=== PATIENT | female | born 1950 ===

== ENCOUNTER 2019-11-18 22:28 | Inpatient (IN) | payer MEDICARE, OTHER ==
[2019-11-18] MEDS ORDERED: PAXIL20 MG PO (23:17)
[2019-11-18] MEDS ORDERED: NORVASC5 MG PO (23:17)
[2019-11-18] MEDS ORDERED: MUPIROCIN22 GM TOPICAL (23:21)
[2019-11-18] MEDS ORDERED: CALCIUM 500 +1 EAC3 PO (23:25)
[2019-11-18] MEDS ORDERED: VITAMIN D400 UNI1 PO (23:27)
[2019-11-18] MEDS ORDERED: VITAMIN D50000 UNI2 PO (23:31)
[2019-11-19 05:22] VITALS: BP 134/79; BMI 24.0
--- NOTE | 2019-11-19 06:23 | NUR ---
NEW ADMIT TO DR CHIRINOS FROM [facility] ED RELATED TO SUCIDAL IDEATIONS. RECEIVED VIA EMS. CALM AND COOPERATIVE UPON ARRIVAL. DENIES THOUGHTS OF SELF HARM. CONTRACTS FOR SAFETY. STATES SHE IS A FULL CODE. SIGNED ADMIT CONSENTS.
[2019-11-19 07:49] LABS: BASOPHILS 0.5 % (0-2); EOSINOPHILS 2.6 % (0-7); HEMATOCRIT 44.6 % (36.0-48.0); IMMATURE GRANULOCYTES 0.4 % (0-5); LYMPHOCYTES 29.1 % (15-50); MCH 31.8 pg (26.0-34.0); MCHC 33.6 g/dL (31.0-37.0); MCV 94.7 fL (80.0-100.0); MEAN PLATELET VOLUME 9.9 fL (7.4-10.4); MONOCYTES 8.4 % (2-11); PLATELET COUNT 255 10x3/uL (130-400); RBC 4.71 10x6/uL (4.00-5.40); RDW 12.2 % (11.5-14.5); WBC 5.5 10x3/uL (4.8-10.8)
[2019-11-19 08:13] LABS: ALBUMIN 4.2 g/dL (3.4-5.0); ALKALINE PHOSPHATASE 60 U/L (30-120); ALT (SGPT) 28 U/L (10-68); BILIRUBIN - TOTAL 0.32 mg/dL (0.2-1.3); CALC OSMOLALITY 281 mosm/kg (275-300); CALCIUM 9.8 mg/dL (8.5-10.1); CARBON DIOXIDE 28.6 mmol/L (21.0-32.0); CHLORIDE - SERUM 104 mmol/L (98-107); CHOL - HDL RATIO 3.3 ratio (2.3-4.1); CHOLESTEROL, TOTAL 255 mg/dL (0-200); CREATININE - SERUM 0.9 mg/dL (0.6-1.3); GLUCOSE 96 mg/dL (74-106); HDL CHOLESTEROL 78 mg/dL (32-96); LDL CHOLESTEROL 160 mg/dL (0-100); LDL-HDL RATIO 2.1 ratio (1.5-3.5); POTASSIUM - SERUM 4.1 mmol/L (3.5-5.1); PROTEIN - SERUM 8.4 g/dL (6.4-8.2); SODIUM 141 mmol/L (136-145); THYROID STIMULATING HORMONE 2.68 uIU/mL (0.36-3.74); TRIGLYCERIDE 86 mg/dL (30-200); UREA NITROGEN 16 mg/dL (7-18); eGFR NON AFRICAN AMERICAN 66 mL/min (90-120)
[2019-11-19 08:30] VITALS: BP 135/92
[2019-11-19 11:17] VITALS: Wt 60.5 kg
--- NOTE | 2019-11-19 11:31 | NUR ---
PT IS VERY AGITATED, TEARFUL, AND ANXIOUS AT THIS TIME. ASSESSMENT COMPLETED. PT IS ALERT X 4. PT DENIES SELF HARM, BUT STATES " I AM A NERVOUS WRECK, I NEED HELP." PRN ATIVAN 0.5MG PO AND HALDOL 2MG PO GIVEN PER PRN ORDERS. WILL CPOC
[2019-11-19 20:00] VITALS: BP 158/65
--- NOTE | 2019-11-19 22:12 | NUR ---
B.) PT IS ALERT AND ORIENTED X4. SHE IS CALM AND COOPERATIVE WITH STAFF. SHE DENIES ANY SI THIS SHIFT. SHE IS RECEIVED IN THE DAYROOM SOCIALIZING WITH PEERS. I.) PROVIDED PM MEDICATIONS PRESCRIBED. REDIRECT NEEDED. R.) COMPLIANT WITH ALL MEDICATIONS. EASY TO REDIRECT. P.) WILL CONTINUE TO MONITOR.
[2019-11-20 07:15] LABS: RAPID PLASMA REAGIN Non Reactive (Non Reactive)
--- NOTE | 2019-11-20 07:50 | NUR ---
The patient is awake and she is alert, she is socializing, she denies SI or HI this am, she is socializing and interacting with her peers. She is pleasant and cooperative. Affect is reactive. She ambulates, toilets, and feeds herself. Provide prescribed meds. The patient is compliant with meds. Continue POC.
[2019-11-20 08:07] VITALS: BP 143/82
--- NOTE | 2019-11-20 15:38 | PSY ---
PATIENT NAME:SARANYA MAN MEDICAL RECORD: [id number] : 54 LOCATION:[facility] ADMISSION DATE: 11/18/19 ACCOUNT: [id number] PSYCHIATRIC EVALUATION DATE OF EVALUATION: 11/19/19 IDENTIFYING DATA: The patient is 69 years old and she is admitted to the hospital on a voluntary basis. CHIEF COMPLAINT: Depression. HISTORY OF PRESENT ILLNESS: The patient initially presented to the [facility] emergency room reporting suicidal ideations and depression. She says she has been very anxious, feeling that she is about to come out of her skin and lose control. She states that she is depressed over her son and problems with her relationship with that son and a related granddaughter that she is not allowed to see. PAST MEDICAL HISTORY: Significant for hypertension. 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 PAST PSYCHIATRIC HISTORY: Significant for depression. The patient had serious problems with mood and behavior as well as hospitalizations for this in the past. FAMILY HISTORY: Unknown. ALLERGIES: CODEINE, IBUPROFEN, AND BENADRYL. CURRENT MEDICATIONS: Include Paxil, Norvasc, and multiple vitamins. SOCIAL HISTORY: The patient does not smoke; she does not drink, although she did in her youth; and she does not use recreational drugs, although again she did in the past. 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 MENTAL STATUS EXAMINATION: The patient is awake, alert, and oriented to person and place as well as time and situation. Her mood is depressed. Her affect is constricted. Thought processes are circumstantial. Memory, concentration, and abstraction abilities are moderately impaired and she denies that she would seek to harm herself or others as well as any overt psychotic symptoms. ASSETS: Supportive family members. LIABILITIES: Limited insight. DIAGNOSTIC IMPRESSION: AXIS I: Major depression, severe, recurrent without psychotic features. AXIS II: Cluster B personality traits. AXIS III: Hypertension, neuropathy, osteoarthritis. AXIS IV: Moderate stressors. AXIS V: Global assessment of functioning is 35. PLAN: At this time, the patient is admitted to the hospital secondary to suicidal thoughts associated with a depressive illness. She will be treated with antidepressant medications. Her long-term prognosis is guarded. NTS:[id number] Voice Confirmation ID: [id number] DOCUMENT ID: [id number] ROGELIO CHIRINOS MD at 1538 CC: [id number] DICTATION DATE: 11/19/19 1609 SCREW MACHINE TOOL SETTER: 11/19/19 1938 ADM IN [place] [id number] [place] [id number]
[2019-11-20 20:29] VITALS: BP 143/74
--- NOTE | 2019-11-20 20:46 | NUR ---
B.) PT IS ALERT AND ORIENTED X4. SHE IS CALM AND COOPERATVIE WITH STAFF. SHE IS ABLE TO VOICE NEEDS AND WANTS. SHE DENIES ANY SI AT THIS TIME. SHE IS OBSERVED SOCIALIZING. I.) PROVIDED PM MEDICATIONS PRESCRIBED. REDIRECT NEEDED. R.) COMPLIANT WITH ALL MEDICATIONS. EASY TO REDIRECT. P.) WILL CONTINUE TO MONITOR.
[2019-11-21 09:50] VITALS: BP 110/79
--- NOTE | 2019-11-21 11:16 | NUR ---
Nutrition Follow-up: Diet: Regular PO intake: 70-100% x all meals Last BM: none since admit. Wt: 144# (11/19/19) Meds and labs reviewed Recommend continue current diet. RD following.
[2019-11-21 20:27] VITALS: BP 113/69
--- NOTE | 2019-11-21 21:30 | NUR ---
B) RECEIVED IN CHAIR WATCHING TV AND SOCIALIZING WITH PEERS. SHE IS ALERT AND ORIENTED X 4, CALM AND COOPERATIVE WITH ASSESSMENT, AND DENIES SI TONIGHT. I) ADMINISTERED SCHEDULED MEDICATIONS ORDERED. REDIRECT NEEDED. R) COMPLIANT WITH MEDICATIONS. REDIRECTS EASILY. P) CONTINUE PLAN OF CARE.
[2019-11-22 08:01] VITALS: BP 119/81
--- NOTE | 2019-11-22 11:37 | NUR ---
PT IS AWAKE AND ALERT. CALM AND COOPERATIVE WITH ASSESSMENT. PRESCRIBED MEDS PROVIDED ORDERED. MED COMPLIANT. DENIES SI OR HI THIS AM. SHE IS PLEASANT AND COOPERATIVE. HER AFFECT IS REACTIVE. WILL CPOC.
[2019-11-22 20:41] VITALS: BP 123/82
--- NOTE | 2019-11-23 03:16 | NUR ---
RECEIVED PATIENT IN DAYROOM, SHE IS CALM, PLEASANT, SOCIALIZING WITH OTHER PATIENTS VERY WELL, SHE ACTUALLY TRIES TO HELP WITH OTHER PATIENTS, SHE IS DENYING SUICIDIAL IDEATIONS, SHE IS COMPLIANT WITH HER MEDS, NO ADVERSE REACTION NOTED, SHE CAN MAKE ALL OF HER NEEDS KNOWN. SHE IS INDEPENDENT WITH ADL'S. WILL FOLLOW POC
[2019-11-23 08:30] VITALS: BP 107/74
--- NOTE | 2019-11-23 12:00 | NUR ---
RECEIVED IN HALLWAY OUTSIDE OF NURSES STATION. CALM AND COOPERATIVE WITH CARE AND ASSESSMENT. DENIES SUICIDAL IDEATION. REDIRECT AND REORIENT NEEDED. EATING AT THIS TIME. CONTINUE PLAN OF CARE.
[2019-11-23 21:50] VITALS: BP 130/80
--- NOTE | 2019-11-23 23:25 | NUR ---
RECEIVED IN DAYROOM. SITTING IN A CHAIR WITH PEERS AT HER SIDE. CALM AND COOPERATIVE WITH CARE ANS ASSESSMENT. NO STATEMENTS OF SELF HARM VOICED THIS EVENING. ENCOURAGE TO EXPRESS NEEDS. RESTING IN BED WITH EYES CLOSED. CONTINUE PLAN OF CARE.
--- NOTE | 2019-11-24 07:45 | NUR ---
REC'D PT BY NURSES STATION SOCAILIZING WITH PEERS. AWAKE AND ALERT X 4. DENIES SI AND HI. CALM AND COOPERATIVE WITH ASSESSMENT. PRESCRIBED MEDS PROVIDED ORDERED. MED COMPLIANT. WILL CPOC.
[2019-11-24 10:40] VITALS: BP 117/77
--- NOTE | 2019-11-24 12:30 | PN ---
PATIENT:SARANYA MAN MEDICAL RECORD: [id number] LOCATION:[facility] ADMISSION DATE: 11/18/19 PROGRESS NOTE DATE OF SERVICE: 11/20/2019 SUBJECTIVE: The patient's case was discussed with staff. She has no new complaint. OBJECTIVE: The patient is much improved. Her mood is near euthymic. ASSESSMENT: Major depression. PLAN: I am going to continue the patient on gabapentin for the neuropathy that she is experiencing. She tells me today that gabapentin has helped her in the past with mood stability. In addition to that, I am going to discontinue her Paxil and we will start her on a low dose of Effexor that may be increased over the next few days. TRANSINT:[id number] Voice Confirmation ID: [id number] DOCUMENT ID: [id number] ROGELIO CHIRINOS MD at 1230 CC: [id number] DICTATION DATE: 11/20/19 1619 BIOLOGIST: 11/20/19 2338 ADM IN [place] [id number] [place] [address]
[2019-11-24] MEDS ORDERED: GABAPENTIN100 MG PO (15:20)
[2019-11-24] MEDS ORDERED: EFFEXOR37.5 MG PO (15:21)
[2019-11-24] MEDS ORDERED: COLACE100 MG PO (15:21)
[2019-11-24 20:04] VITALS: BP 120/70
--- NOTE | 2019-11-24 21:25 | NUR ---
B.) PT IS ALERT AND ORIENTED X4. SHE IS ABLE TO VOICE NEEDS AND WANTS. SHE IS VERY HELPFUL WITH OTHER PATIENTS. SHE DENIES SI. I.) PROVIDED PM MEDICATIONS PRESCRIBED. REDIRECT NEEDED. R.) COMPLIANT WITH ALL MEDICATIONS. EASY TO REDIRECT. P.) WILL CONTINUE TO MONITOR.
[2019-11-25 08:02] VITALS: BP 123/82
--- NOTE | 2019-11-25 10:00 | NUR ---
PT DISCHARGED HOME WITH . NO S/SX OF DISTRESS NOTED AT THIS TIME. ALL PAPERWORK FAXED AND COPY SENT WITH PT AT TIME OF DISCHARGE. ALL BELONGINGS SENT WITH PT AT THIS TIME.
--- NOTE | 2019-11-25 11:31 | PN ---
PATIENT:SARANYA MAN MEDICAL RECORD: [id number] LOCATION:[facility] ADMISSION DATE: 11/18/19 PROGRESS NOTE DATE OF SERVICE: 11/24/2019 SUBJECTIVE: The patient's case was discussed with staff. She has no new complaint. OBJECTIVE: The patient is in good behavioral control with poor insight about her situation. She tolerates her medicines well. She has no thoughts of harming herself or others. ASSESSMENT: Major depression. PLAN: The patient is going to be transitioned out of the hospital tomorrow. It is important that she follow up with an outpatient counselor and psychiatrist. TRANSINT:[id number] Voice Confirmation ID: [id number] DOCUMENT ID: [id number] ROGELIO CHIRINOS MD at 1131 CC: [id number] DICTATION DATE: 11/24/19 1517 PULLING MACHINE OPERATOR: 11/25/19 0002 DIS IN 11/25/19 [place] [id number] [place] [address]
--- NOTE | 2019-11-27 13:11 | DS ---
PATIENT:SARANYA MAN :54 MEDICAL RECORD: [id number] DISCHARGE SUMMARY ADMISSION DATE: 11/18/19 DISCHARGE DATE: 11/25/19 IDENTIFYING DATA: The patient is 69 years old and she is admitted to the hospital on a voluntary basis. CHIEF COMPLAINT: Depression. HISTORY OF PRESENT ILLNESS: The patient initially was taken to the [facility] Emergency Room having complaints of depression and suicidal thoughts. She has been depressed over her son and her relationship with her son and apparently there is a granddaughter involved that she is not allowed to see. She was admitted to the hospital for evaluation and treatment of these symptoms. HOSPITAL COURSE: The patient was admitted to the hospital and fully evaluated from both a medical, psychological, and social standpoint. She was treated with both mood stabilizing and memory enhancing medications. She showed a rapid improvement in her underlying symptoms and was referred to outpatient therapy. It seems that she was never really wanting to hurt herself. She was expressing a high degree of despair and stating that if she cannot see her granddaughter, she might as well not be alive. It was a very passive wish to and did not represent true suicidal intent. DISCHARGE DIAGNOSES: AXIS I: Major depression, severe, recurrent without psychotic features. AXIS II: Cluster B personality traits. AXIS III: Hypertension, neuropathy, osteoarthritis. AXIS IV: Moderate stressors. AXIS V: Global assessment of functioning is 40. PLAN: At the time of discharge, the patient was in good behavioral control and had no thoughts of harming herself or others. She was tolerating her medicines well. Followup is to be with an outpatient psychiatrist and she is going to be referred to outpatient psychotherapy. TRANSINT:[id number] Voice Confirmation ID: [id number] DOCUMENT ID: [id number] ROGELIO CHIRINOS MD at 1311 CC: [id number] DICTATION DATE: 11/26/19 1531 ELECTRONIC FIELD SERVICE ENGINEER: 11/27/19 0819 DIS IN 11/25/19 [place] [id number] [place] [address]
== END 2019-11-25 10:00 | disposition home or self-care (01) | DRG 885 ==
LOC: D.PSYCH 22:28
PROVIDERS: ADMIT Psychiatry & Neurology Psychiatry; ATTEND Psychiatry & Neurology Psychiatry
DX: F33.2 Major depressive disorder, recurrent severe without psychotic features (principal); I10 Essential (primary) hypertension; M19.90 Unspecified osteoarthritis, unspecified site; G62.9 Polyneuropathy, unspecified; F41.9 Anxiety disorder, unspecified; F60.89 Other specific personality disorders; K59.00 Constipation, unspecified